=== PATIENT | male | born 2000 | race Two or more races ===

== ENCOUNTER 2024-05-19 19:23 | Emergency (ER) | payer OTHER, SELFPAY ==
[2024-05-19] VITALS (10 sets, daily range): BP systolic 108–144; BP diastolic 75–87; PULSE 80–120; RESP 17–26; TEMP 36.9; O2SAT 91–98; BMI 38.7
--- NOTE | 2024-05-19 19:35 | XRR_ITS ---
PROCEDURE INFORMATION: Exam: XR Chest Exam date and time: 05/19/2024 7:38 PM Age: 23 years old Clinical indication: Shortness of breath; Additional info: SOB TECHNIQUE: Imaging protocol: Radiologic exam of the chest. Views: 1 view. COMPARISON: No relevant prior studies available. FINDINGS: Lungs: The lungs are adequately expanded. No focal consolidations or pulmonary edema. Pleural spaces: No pleural effusions or pneumothorax. Heart/Mediastinum: No cardiomegaly. Bones/joints: No acute fractures. XR/XR chest 1V portable [id number] IMPRESSION: No acute pulmonary disease.
--- NOTE | 2024-05-19 19:43 | W.ED.SOB ---
HPI - SOB/Dyspnea General: Chief Complaint: Shortness of Breath/Dyspnea Stated Complaint: [place] inhaled at work Time Seen by Provider: 05/19/24 19:35 Source: patient Mode of arrival: ambulatory Limitations: no limitations History of Present Illness: HPI Narrative: 23-year-old male has a history of asthma he works as a hand dry cleaner states that he was cleaning house in the bathroom with hand dry cleaner and states he inhaled some fumes and since then he has been having wheezing with shortness of breath he states he does not have an inhaler or any albuterol. Patient is wheezing here he denies any chest pain denies any vomiting or diarrhea. Associated symptoms: Deny abdominal pain, chest pain, fever(s), nausea or vomiting Related Data Previous Rx's Medication Instructions Recorded albuterol sulfate 90 mcg/actuation 2 inh inhalation Q6H PRN shortness 05/19/24 aerosol inhaler of breath or wheezing #8 grams prednisone 50 mg tablet 50 mg PO DAILY #5 tabs 05/19/24 Allergies Allergy/AdvReac Type Severity Reaction Status Date / Time No Known Allergies Allergy Verified 05/19/24 19:33 Review of Systems Const: Denies: fever(s), chills, body aches or change in appetite ENMT: Denies: throat pain or dental pain Card: Denies: chest pain Resp: Reports: dyspnea and wheezing GI: Denies: abdominal pain, nausea, vomiting or diarrhea : Denies: dysuria Musc: Denies: neck pain or back pain Skin/Breast: Denies: rash Neuro: Denies: headache(s) Physical Exam Const: COMMON NORMALS: no acute distress, patient oriented x3 and healthy appearing HENMT: COMMON NORMALS: normocephalic and atraumatic HEAD & SCALP: normocephalic and atraumatic Eye: COMMON NORMALS: Equal, round and reactive pupils present and EOMs intact bilaterally PUPIL: Yes Equal, round and reactive pupils present Neck/C-Spine: COMMON NORMALS: full ROM and supple Chest: COMMONS NORMALS: normal inspection of the chest and normal palpation of entire chest wall Resp: COMMON NORMALS: No retractions and clear to auscultation bilaterally AUSCULTATION: clear to auscultation bilaterally and wheezes Cardio: COMMON NORMALS: regular rate, regular rhythm and No murmurs present (Cardio) RATE: regular rate RHYTHM: regular rhythm GI: COMMON NORMALS: Normal to inspection, nondistended, normoactive bowel sounds present, Soft to palpation, non-tender and no masses PALPATION: Yes Soft to palpation Extremity: COMMON NORMALS: normal to inspection and full ROM Neuro: COMMON NORMALS: patient oriented x3, moves all extremities and no focal motor deficits Psych: COMMON NORMALS: mental status grossly normal, Normal thought process present and cooperative THOUGHT PROCESS: Normal thought process present Skin: COMMON NORMALS: no rashes or lesions noted and no wounds GENERAL SKIN EXAM: no rashes or lesions noted Course Vital Signs: Vital signs: Vital Signs Temperature 98.5 F 05/19/24 19:29 Pulse Rate 111 H 05/19/24 21:30 Respiratory Rate 18 05/19/24 20:40 Blood Pressure 144/81 05/19/24 21:30 Pulse Oximetry 94 05/19/24 21:30 Oxygen Delivery Me thod Room Air 05/19/24 21:30 MDM - SOB/Dyspnea Medical Decision Making Patient presents with asthma exacerbation he feels much improved after breathing treatments his wheezing improved pulse ox here has been normal did send him home with albuterol inhaler will prescribe inhaler as well as along with 5 4 days of steroids he is follow-up PCP return if worsening he understands agrees to plan Medical Records I reviewed the patient's medical records. Lab Data I reviewed the patient's lab results. 05/19/24 19:44 05/19/24 19:44 Labs/Radiology: Radiology Impressions Chest X-Ray 05/19/24 19:35 IMPRESSION: No acute pulmonary disease. Laboratory Results WBC 9.87 10^3/uL (3.29-11.43) 05/19/24 19:44 RBC 5.75 10^6/uL (3.85-5.65) H 05/19/24 19:44 Hgb 16.10 g/dL (11.27-16.99) 05/19/24 19:44 Hct 47.4 % (37-53) 05/19/24 19:44 MCV 82.4 fl (82-101) 05/19/24 19:44 MCH 28.0 pg (27-33) 05/19/24 19:44 MCHC 34.0 g/dL (30-55) 05/19/24 19:44 RDW 13.0 % (12.1-15.1) 05/19/24 19:44 Plt Count 256 10^3/cmm (157-399) 05/19/24 19:44 MPV 9.9 fL (7.4-10.4) 05/19/24 19:44 Neut % (Auto) 60.7 % 05/19/24 19:44 Lymph % (Auto) 27.8 % 05/19/24 19:44 [place] % (Auto) 8.7 % 05/19/24 19:44 Eos % (Auto) 2.2 % 05/19/24 19:44 Baso % (Auto) 0.3 % 05/19/24 19:44 Neut # (Auto) 5.99 10^3/uL (1.8-7.7) 05/19/24 19:44 Lymph # (Auto) 2.7 10^3/uL (0.8-4.8) 05/19/24 19:44 [place] # (Auto) 0.9 10^3/uL (0.2-0.9) 05/19/24 19:44 Eos # (Auto) 0.2 10^3/uL (0.0-0.8) 05/19/24 19:44 Baso # (Auto) 0.0 10^3/uL (0.0-0.1) 05/19/24 19:44 Nucleated RBC % (auto) 0 % 05/19/24 19:44 Nucleated RBCs # 0.0 /100WBC 05/19/24 19:44 Sodium 143 mmol/L (136-145) 05/19/24 19:44 Potassium 4.1 mmol/L (3.5-5.1) 05/19/24 19:44 Chloride 105 mmol/L (98-107) 05/19/24 19:44 Carbon Dioxide 25 mmol/L (22-29) 05/19/24 19:44 Anion Gap 17.1 (5-19) 05/19/24 19:44 BUN 17 mg/dL (6-20) 05/19/24 19:44 Creatinine 0.9 mg/dL (0.7-1.2) 05/19/24 19:44 GFR Calculation 102.8 mL/min (90-130) 05/19/24 19:44 Glucose 105 mg/dL (65-115) 05/19/24 19:44 Calculated Osmolality 298 mOsm/kg (285-295) H 05/19/24 19:44 Calcium 9.2 mg/dL (8.5-10.5) 05/19/24 19:44 All radiology interpretation(s) finalized by discharge Discharge Plan Discharge Patient Disposition: Home Clinical Impression: Asthma with exacerbation Condition: Stable Prescriptions: New prednisone 50 mg tablet 50 mg PO DAILY Qty: 5 0RF albuterol sulfate 90 mcg/actuation HFA aerosol inhaler 2 inh INHALATION Q6H PRN (Reason: shortness of breath or wheezing) Qty: 8 0RF Discharge Orders: Discharge ED (Routine); Ordered 05/19/24 Ordered By: Joaquin Love Discharge Diet: Advance as tolerated Discharge Activity: Resume usual activity Patient Instructions: Asthma Exacerbation - Adult Coding Level of Care Code ED Director Of Graduate Admissions for Nicole Mac
[2024-05-19] MEDS: ipratropium-albuterol 3 mL Neb INHALATION (19:49)
[2024-05-19] MEDS: albuterol 2.5 mg/3 mL Neb INHALATION (19:49)
[2024-05-19 19:51] LABS: Basophils % 0.3 %; Eosinophils # 0.2 10^3/uL (0.0-0.8); Eosinophils % 2.2 %; Hematocrit 47.4 % (37-53); Lymphocytes # 2.7 10^3/uL (0.8-4.8); Lymphocytes % 27.8 %; Mean Corpuscular Volume 82.4 fl (82-101); Mean Platelet Volume 9.9 fL (7.4-10.4); Monocytes # 0.9 10^3/uL (0.2-0.9); Monocytes % 8.7 %; Neutrophils # 5.99 10^3/uL (1.8-7.7); Neutrophils % 60.7 %; Nucleated Red Blood Cells % 0 %; Platelet Count 256 10^3/cmm (157-399); Red Blood Count 5.75 10^6/uL (3.85-5.65); White Blood Count 9.87 10^3/uL (3.29-11.43)
[2024-05-19] MEDS: methylPREDNISolone sod succ 125 mg/2 mL INJ IV (20:04)
[2024-05-19 20:07] LABS: Anion Gap 17.1 (5-19); Blood Urea Nitrogen 17 mg/dL (6-20); Calcium 9.2 mg/dL (8.5-10.5); Carbon Dioxide 25 mmol/L (22-29); Chloride 105 mmol/L (98-107); Creatinine Clr Calc Pharmacy 145.2138; Glomerular Filtration Rate 102.8 mL/min (90-130); Glucose 105 mg/dL (65-115); Osmolality Calculated 298 mOsm/kg (285-295); Potassium 4.1 mmol/L (3.5-5.1); Sodium 143 mmol/L (136-145)
[2024-05-19] MEDS: ondansetron 2 mg/ML SDV 2 mL 4 MG IVP (20:21)
[2024-05-19] MEDS: albuterol 8 gm MDI 2 PUFF INHALATION (20:40)
[2024-05-19] MEDS: albuterol 2.5 mg/3 mL Neb 5 MG INHALATION (20:40)
== END 2024-05-19 22:03 | disposition home or self-care (01) ==
PROVIDERS: Emergency Provider Emergency Medicine
DX: J45.901 Unspecified asthma with (acute) exacerbation (principal)
CPT/HCPCS: 36415; 71045; 80048; 85025; 94640; 96374; 96375; 99284; J2405; J2919; J3535; J7613